=== PATIENT | female | born 1980 | race Caucasian/White ===

== ENCOUNTER → 2017-05-10 | Outpatient (CLI) | payer OTHER ==
[~2017-05-10] MED LIST: ALPR0.25 PO; CHOL2000 PO; GADOBUTROL 10 MMOL/10 ML PFS ONE; METF10002 PO; MULT-124 PO; MULT-672 PO; OMEG1TAB2 PO; SPIR50TA2 PO; VITA1CAP PO
== END | disposition home or self-care (01) ==
LOC: CFH 10:27
PROVIDERS: ATTEND Neurological Surgery
DX: M50.23 Other cervical disc displacement, cervicothoracic region (principal); G95.0 Syringomyelia and syringobulbia; M50.30 Other cervical disc degeneration, unspecified cervical region
CPT/HCPCS: 72156; A9585

== ENCOUNTER 2017-06-04 05:36 | Observation (INO) | payer OTHER ==
[2017-05-28 13:29] VITALS: BP 103/60
[~2017-06-04] VITALS: Ht 167.6 cm; Wt 127.6 kg
[~2017-06-04 05:36] MED LIST changes: +AMIT25TA PO; -GADOBUTROL 10 MMOL/10 ML PFS ONE; +RIZA10TA20 PO
[2017-06-04] MEDS ORDERED: LACTATED RINGERS 1,000 ML IV SCH (06:31)
[2017-06-04 06:36] LABS: HCG UR SG 1.028 (1.003-1.030)
[2017-06-04] MEDS ORDERED: THROMBIN 5,000 UNIT VIAL TP ONE (06:56)
[2017-06-04] MEDS ORDERED: EPINEPHRINE 1 MG/ML, 1ML ONE (06:56)
[2017-06-04] MEDS ORDERED: BACITRACIN 50,000 UNIT ONE (06:56)
[2017-06-04] MEDS ORDERED: BUPIVACAINE/PF 0.5% ONE (06:56)
[2017-06-04] MEDS ORDERED: LIDOCAINE-MPF 1%, 2ML INFIL ONE (07:00)
[2017-06-04] MEDS ORDERED: MIDAZOLAM 1 MG/ML, 2ML ONE (07:10)
[2017-06-04] MEDS ORDERED: FENTANYL PF 250 MCG/5ML ONE (07:11)
[2017-06-04] MEDS ORDERED: GABAPENTIN 300 MG CAPSULE ONE (07:24)
[2017-06-04] MEDS ORDERED: OxyconTIN ER 20 MG TAB.ER ONE (07:25)
[2017-06-04] MEDS ORDERED: ACETAMINOPHEN 500 MG TABLET ONE (07:25)
[2017-06-04] MEDS ORDERED: SCOPOLAMINE PATCH, 1.5MG PATCH.TD72 TD ONE ×2 (07:26→07:30)
[2017-06-04] MEDS ORDERED: GABAPENTIN 300 MG CAPSULE PO ONE (07:30)
[2017-06-04] MEDS ORDERED: OxyconTIN ER 20 MG TAB.ER PO ONE (07:30)
[2017-06-04] MEDS ORDERED: ACETAMINOPHEN 500 MG TABLET PO ONE (07:30)
[2017-06-04] MEDS ORDERED: CEFAZOLIN 1,000 MG ONE (07:37)
[2017-06-04] MEDS ORDERED: DEXAMETHASONE 4 MG/ML, 1ML ONE (07:37)
[2017-06-04] MEDS ORDERED: ONDANSETRON 2MG/ML, 2ML ONE (07:37)
[2017-06-04] MEDS ORDERED: PROPOFOL 10 MG/ML, 20ML ONE (07:37)
[2017-06-04] MEDS ORDERED: SUCCINYLCHOLINE 20 MG/ML, 10ML ONE (07:37)
[2017-06-04] MEDS ORDERED: SUFentanil 50 MCG/ML, 2ML ONE (08:24)
[2017-06-04] MEDS ORDERED: LABETALOL 5MG/ML, 20ML IV PRN (08:30)
[2017-06-04] MEDS ORDERED: LORazepam 2 MG/ML, 1ML IVPush PRN (08:30)
[2017-06-04] MEDS ORDERED: ALBUTEROL SULFATE 2.5 MG/3 ML NPPB PRN (08:30)
[2017-06-04] MEDS ORDERED: HYDROmorphone 1 MG/ML, 1ML IV PRN (08:30)
[2017-06-04] MEDS ORDERED: PROMETHAZINE 12.5 MG SUPP PR PRN (08:30)
[2017-06-04] MEDS ORDERED: hydrALAzine 20 MG/ML, 1ML IV PRN (08:30)
[2017-06-04] MEDS ORDERED: PROMETHAZINE 25 MG/ML, 1ML IV PRN (08:30)
[2017-06-04] MEDS ORDERED: OXYcodone 5 MG/5 ML ORAL.SOL UDC PO PRN (08:30)
[2017-06-04] MEDS ORDERED: MEPERIDINE/PF 25MG/0.5ML IVPush PRN (08:30)
[2017-06-04] MEDS ORDERED: LABETALOL 5MG/ML, 20ML ONE (09:57)
[2017-06-04] MEDS ORDERED: FENTANYL PF 100 MCG/2ML ONE (09:58)
[2017-06-04] MEDS ORDERED: DIPHENHYDRAMINE 50 MG/ML, 1ML IVPush PRN (10:00)
[2017-06-04] MEDS ORDERED: MEPERIDINE/PF 100 MG/ML IM PRN (10:00)
[2017-06-04] MEDS ORDERED: ONDANSETRON 2MG/ML, 2ML IVPush PRN ×2 (10:00→10:22)
[2017-06-04] MEDS ORDERED: PROMETHAZINE 25 MG/ML, 1ML IM PRN (10:00)
[2017-06-04] MEDS ORDERED: MAGNESIUM HYDROXIDE 8%, 30ML UDC PO PRN (10:00)
[2017-06-04] MEDS ORDERED: HYDROmorphone 1 MG/ML, 1ML IVPush PRN (10:00)
[2017-06-04] MEDS ORDERED: PHARMACY MAY ADJ FOR RENAL FX MC PRN (10:00)
[2017-06-04] MEDS ORDERED: BISACODYL 10 MG SUPP PR PRN (10:00)
[2017-06-04] MEDS: FENTANYL PF 100 MCG/2ML IV PRN ×2 (10:01→10:17)
[2017-06-04] MEDS ORDERED: DIPHENHYDRAMINE 50 MG/ML, 1ML ONE (10:14)
[2017-06-04] MEDS ORDERED: ONDANSETRON ODT 4 MG PO PRN (10:30)
[2017-06-04] MEDS: HYDROcodone/APAP 10/325 MG TABLET PO PRN ×3 (11:32→21:01)
[2017-06-04] MEDS: NS + 20MEQ KCL 1,000 ML IV SCH ×2 (12:06→22:00)
[2017-06-04 12:36] VITALS: BP 151/90
[2017-06-04] MEDS: TIZANIDINE 4MG TABLET PO PRN ×2 (13:22→21:01)
[2017-06-04] MEDS: CEFAZOLIN PMX 1GM/50ML 50 ML IVPB SCH (16:28)
[2017-06-04 19:42] VITALS: BP 121/73
[2017-06-04] MEDS: SODIUM CHLORIDE FLUSH 10ML SYR IVF SCH (21:00)
[2017-06-04] MEDS ORDERED: AMITRIPTYLINE 25 MG TABLET PO SCH (21:00)
[2017-06-05] MEDS: CEFAZOLIN PMX 1GM/50ML 50 ML IVPB SCH (00:52)
[2017-06-05] MEDS: HYDROcodone/APAP 10/325 MG TABLET PO PRN ×3 (00:52→09:41)
[2017-06-05 01:10] VITALS: BP 121/63
[2017-06-05 04:36] VITALS: BP 104/71
[2017-06-05] MEDS: TIZANIDINE 4MG TABLET PO PRN (05:03)
[2017-06-05 07:00] VITALS: BP 121/80
[2017-06-05] MEDS: NS + 20MEQ KCL 1,000 ML IV SCH (08:00)
[2017-06-05] MEDS: SODIUM CHLORIDE FLUSH 10ML SYR IVF SCH (08:42)
[2017-06-05] MEDS ORDERED: SENNA/DOCUSATE TABLET PO SCH (09:00)
[2017-06-05] MEDS ORDERED: OXYC-302 PO (09:58)
[2017-06-05] MEDS ORDERED: TIZA2CAP PO (10:23)
== END 2017-06-05 10:35 | disposition home or self-care (01) ==
LOC: INTOOBSV 05:36 → ORIP 05:36 → 4NOR 10:56 → DCLOUNGE 06-05 10:18
PROVIDERS: ADMIT Neurological Surgery; ATTEND Neurological Surgery
DX: M50.122 Cervical disc disorder at C5-C6 level with radiculopathy (principal); M47.812 Spondylosis without myelopathy or radiculopathy, cervical region
CPT/HCPCS: 22846; 36415; 63081; 63082; 69990; 72040; 81025; 86850; 86900; 95938; 95941; 96365; 96375; C1713; G0378; J0171; J0330; J0690; J1100; J1200; J2250; J2405; J2704; J3010; J3480; J3490; J7120

== ENCOUNTER → 2018-05-13 | Outpatient (CLI) | payer OTHER ==
[~2018-05-13] MED LIST changes: +OXYC-302 PO; -SPIR50TA2 PO; +SPIR50TA4 PO; +TIZA2CAP PO
== END | disposition home or self-care (01) ==
LOC: RAD 11:10
PROVIDERS: ATTEND Physician Assistant
DX: M25.511 Pain in right shoulder (principal); G89.29 Other chronic pain

== ENCOUNTER → 2018-09-01 | Outpatient (CLI) | payer OTHER | END | disposition home or self-care (01) | LOC: CFH 07:59 | PROVIDERS: ATTEND Physician Assistant | DX: M75.21 Bicipital tendinitis, right shoulder (principal) ==

== ENCOUNTER → 2019-01-16 | Outpatient (CLI) | payer OTHER ==
[2019-01-16 11:50] LABS: BASOPHILS # (AUTO) 0.03 x10^3/uL (0-0.1); BASOPHILS % (AUTO) 1 % (0-1); EOSINOPHILS # (AUTO) 0.12 x10^3/uL (0-0.4); EOSINOPHILS % (AUTO) 2 % (1-7); LYMPHOCYTES % (AUTO) 36 % (22-44); MD NO; MEAN CORPUSCULAR HEMOGLOBIN 30.2 pg (27.0-34.8); MEAN CORPUSCULAR HGB CONC 33.7 g/dL (32.4-35.8); MEAN CORPUSCULAR VOLUME 89.7 fL (80-100); MEAN PLATELET VOLUME 7.7 fL (7.4-10.4); MONOCYTES # (AUTO) 0.43 x10^3/uL (0.2-0.8); MONOCYTES % (AUTO) 7 % (2-9); NEUTROPHILS # (AUTO) 3.64 x10^3/uL (1.8-6.8); NEUTROPHILS % (AUTO) 55 % (42-75); PLATELET COUNT 220 x10^3/uL (130-400); RED BLOOD COUNT 5.09 x10^6/uL (3.82-5.3); RED CELL DISTRIBUTION WIDTH 13.4 % (9.6-15.2)
[2019-01-16 11:57] LABS: ALBUMIN 4.1 g/dL (3.4-5.0); ANION GAP 6 mmol/L (5-15); CALCIUM 8.8 mg/dL (8.5-10.1); CHLORIDE 104 mmol/L (98-107)
[2019-01-16 11:59] LABS: ALANINE AMINOTRANSFERASE 22 U/L (12-78); ALKALINE PHOSPHATASE 44 U/L (45-117); BILIRUBIN,TOTAL 0.7 mg/dL (0.2-1.0); CREATININE 0.74 mg/dL (0.55-1.02); TOTAL PROTEIN 7.4 g/dL (6.4-8.2)
[2019-01-20 15:01] LABS: ANA SCREEN NEGATIVE (Negative)
== END | disposition home or self-care (01) ==
LOC: LAB 11:24
PROVIDERS: ATTEND Family Medicine
DX: R10.9 Unspecified abdominal pain (principal); Z86.718 Personal history of other venous thrombosis and embolism
CPT/HCPCS: 36415; 80053; 82150; 83690; 85025; 86038

== ENCOUNTER → 2019-02-09 | Outpatient (CLI) | payer OTHER | END | disposition home or self-care (01) | LOC: RAD 15:27 | PROVIDERS: ATTEND Family Medicine | DX: R16.1 Splenomegaly, not elsewhere classified (principal) | CPT/HCPCS: 76700 ==

== ENCOUNTER 2020-02-20 11:23 | Inpatient (IN) | payer OTHER ==
[~2020-02-20] VITALS: Ht 167.6 cm; Wt 123.2 kg
--- NOTE | 2020-02-20 11:45 | NUR ---
task RN note: pt presents to ED, known covid +, symptom duration 11 days. c/o headache, cough, sore throat, sob, diarrhea, n/v. c/o sternal cp onset yesterday radiating to back. pt is a&o, resps even and unlabored. able to speak in full sentences without difficulty. all monitors in place. EKG taken on arrival by EDT. pt seen and examined by SADE Farmer, awaiting orders at this time. report given to primary RN Jie.
[2020-02-20] MEDS ORDERED: HYDROmorphone 2 MG/ML, 1ML ONE (12:16)
[2020-02-20] MEDS ORDERED: ONDANSETRON 2MG/ML, 2ML ONE (12:16)
[2020-02-20 12:25] LABS: BASOPHILS % (AUTO) 1 % (0-1); EOSINOPHILS % (AUTO) 4 % (1-7); LYMPHOCYTES % (AUTO) 39 % (22-44); MEAN CORPUSCULAR HEMOGLOBIN 30.2 pg (27.0-34.8); MEAN CORPUSCULAR HGB CONC 34.4 g/dL (32.4-35.8); MEAN PLATELET VOLUME 7.5 fL (7.4-10.4); MONOCYTES % (AUTO) 9 % (2-9); NEUTROPHILS % (AUTO) 48 % (42-75); PLATELET COUNT 153 x10^3/uL (130-400); RED CELL DISTRIBUTION WIDTH 12.8 % (9.6-15.2)
[2020-02-20] MEDS: HYDROmorphone 1 MG/ML, 1ML INJ IVPush PRN ×2 (12:31→14:39)
[2020-02-20 12:33] LABS: ALANINE AMINOTRANSFERASE 17 U/L (12-78); ALBUMIN 3.4 g/dL (3.4-5.0); ANION GAP 3 mmol/L (5-15); CALCIUM 8.6 mg/dL (8.5-10.1); CHLORIDE 108 mmol/L (98-107); CREATININE 0.82 mg/dL (0.55-1.02)
[2020-02-20 12:37] LABS: ALKALINE PHOSPHATASE 56 U/L (45-117); BILIRUBIN,TOTAL 0.6 mg/dL (0.2-1.0); TOTAL PROTEIN 7.5 g/dL (6.4-8.2); TROPONIN I < 0.015 ng/mL (0.000-0.045)
[2020-02-20] MEDS ORDERED: CEFTRIAXONE PMX 1GM/50ML 50 ML ONE ×2 (12:37→14:05)
[2020-02-20 12:46] LABS: MD SCAN
--- NOTE | 2020-02-20 12:59 | NUR ---
PIV INITIATED, PT MEDICATED PER MAR. GIVEN WARM BLANKET AND WATER PER REQUEST. DISCUSSED POC WITH PT, ALL QUESTIONS ANSWERED. VSS, NO OTHER NEEDS VOICED
[2020-02-20] MEDS ORDERED: SODIUM CHLORIDE FLUSH 10ML SYR IVF ONE (13:00)
[2020-02-20] MEDS ORDERED: ONDANSETRON 2MG/ML, 2ML IVPush ONE (13:00)
[2020-02-20] MEDS ORDERED: SODIUM CHLORIDE 0.9% 1,000ML IVBOLUS ONE (13:00)
[2020-02-20] MEDS ORDERED: CEFTRIAXONE PMX 1GM/50ML 50 ML IVPB ONE (13:00)
[2020-02-20] MEDS ORDERED: AZITHROMYCIN 500 MG in SODIUM CHLORIDE 0.9% 250 ML IV ONE (14:00)
[2020-02-20] MEDS ORDERED: HYDROmorphone 1 MG/ML, 1ML INJ ONE (14:31)
[2020-02-20] MEDS ORDERED: ACETAMINOPHEN 500 MG TABLET ONE (14:32)
--- NOTE | 2020-02-20 14:39 | NUR ---
Task rn: medicated for chills/body aches. Er provider asked about steroids. Er provider would like to defer to hospitalist
[2020-02-20] MEDS ORDERED: ACETAMINOPHEN 500 MG TABLET PO ONE ×2 (15:00→15:30)
[2020-02-20 15:16] LABS: C-REACTIVE PROTEIN, QUANT 2.1 mg/dL (0.02-0.49)
--- NOTE | 2020-02-20 15:23 | NUR ---
RECEIVED REPORT AND ASSUMED CARE. PT. REMAINS MONITORED. PT. REPORTS RELIEF FROM [facility] AND RATES HER PAIN 3/10. DR. PANTOJA AT THE BEDSIDE. PT. HAS EXSPIRATORY WHEEZING NOTED THROUGHOUT. DISCUSSED WITH MD ABOUT STEROIDS. ORDERS RECEIVED. PT. REMAINS MONITORED WITH HER IV SITE PATENT AND INFUSING. SIDERAILS ARE UP X 2 WITH THE CALL LIGHT IN PLACE.
[2020-02-20] MEDS ORDERED: DEXAMETHASONE 4 MG/ML, 1ML ONE (15:28)
--- NOTE | 2020-02-20 15:51 | NUR ---
REPORT WAS CALLED TO KARY HERNANDEZ. PT. IS READY FOR TRANSPORT.
[2020-02-20] MEDS: DEXAMETHASONE 4 MG/ML, 1ML IVPush SCH (15:57)
[2020-02-20] MEDS ORDERED: DOCUSATE 100 MG CAPSULE PO PRN (16:00)
[2020-02-20] MEDS ORDERED: ONDANSETRON 2MG/ML, 2ML IVPush PRN (16:00)
[2020-02-20] MEDS ORDERED: hydrALAzine 20 MG/ML, 1ML IVPush PRN (16:00)
[2020-02-20] MEDS ORDERED: LABETALOL 5MG/ML, 20ML IVPush PRN (16:00)
[2020-02-20] MEDS ORDERED: LOPERAMIDE 2 MG CAPSULE PO PRN (16:30)
[2020-02-20] MEDS ORDERED: ONDA4TAB7 PO (16:37)
[2020-02-20] MEDS: BENZONATATE 100 MG CAPSULE PO SCH ×2 (17:10→20:43)
[2020-02-20] MEDS: ASCORBIC ACID 500 MG TABLET PO SCH (17:10)
[2020-02-20] MEDS: ENOXAPARIN 60 MG/0.6 ML SQ SCH (17:10)
[2020-02-20 17:30] VITALS: BP 111/72
[2020-02-20 18:37] VITALS: BP 123/84
[2020-02-20 19:06] LABS: MICROSCOPIC INDICATED
[2020-02-20] MEDS: ALBUTEROL HFA 90 MCG/SPRAY INH SCH (20:42)
[2020-02-20] MEDS: FAMOTIDINE 20 MG TABLET PO SCH (20:43)
[2020-02-20] MEDS: SODIUM CHLORIDE FLUSH 10ML SYR IVF SCH (20:44)
[2020-02-20] MEDS: KETOROLAC 30 MG/1 ML IV PRN (20:44)
[2020-02-20] MEDS: MELATONIN 5 MG TABLET PO SCH (20:44)
[2020-02-20] MEDS ORDERED: TEMAZEPAM 15 MG CAPSULE PO SCH (21:00)
[2020-02-20] MEDS: HYDROmorphone 2 MG/ML, 1ML IVPush PRN (22:09)
[2020-02-21 01:13] VITALS: BP 105/73
[2020-02-21] MEDS: ALBUTEROL HFA 90 MCG/SPRAY INH SCH ×4 (02:33→21:45)
[2020-02-21 05:41] LABS: BASOPHILS % (AUTO) 1 % (0-1); EOSINOPHILS % (AUTO) 0 % (1-7); LYMPHOCYTES % (AUTO) 17 % (22-44); MEAN CORPUSCULAR HEMOGLOBIN 30.3 pg (27.0-34.8); MEAN CORPUSCULAR HGB CONC 34.8 g/dL (32.4-35.8); MEAN PLATELET VOLUME 7.7 fL (7.4-10.4); MONOCYTES % (AUTO) 9 % (2-9); NEUTROPHILS % (AUTO) 74 % (42-75); PLATELET COUNT 181 x10^3/uL (130-400); RED BLOOD COUNT 4.99 x10^6/uL (3.82-5.3); RED CELL DISTRIBUTION WIDTH 12.4 % (9.6-15.2)
[2020-02-21 05:43] LABS: MD NO
[2020-02-21 05:48] LABS: ANION GAP 2 mmol/L (5-15); CALCIUM 8.2 mg/dL (8.5-10.1); CHLORIDE 108 mmol/L (98-107); CREATININE 0.58 mg/dL (0.55-1.02)
[2020-02-21 07:31] VITALS: BP 118/77
[2020-02-21] MEDS: ASCORBIC ACID 500 MG TABLET PO SCH ×2 (08:02→16:01)
[2020-02-21] MEDS: ZINC SULFATE 220 MG CAPSULE PO SCH (08:02)
[2020-02-21] MEDS: BENZONATATE 100 MG CAPSULE PO SCH ×3 (08:02→21:41)
[2020-02-21] MEDS: FAMOTIDINE 20 MG TABLET PO SCH ×2 (08:02→21:41)
[2020-02-21] MEDS: CHOLECALCIFEROL 5,000u TAB PO SCH (08:03)
[2020-02-21] MEDS: THIAMINE 100MG TABLET PO SCH (08:03)
[2020-02-21] MEDS: SODIUM CHLORIDE FLUSH 10ML SYR IVF SCH ×2 (08:03→21:46)
[2020-02-21] MEDS: CEFTRIAXONE PMX 2GM/50ML 50 ML IVPB SCH (08:03)
[2020-02-21] MEDS: KETOROLAC 30 MG/1 ML IV PRN (08:10)
[2020-02-21] MEDS ORDERED: AZITHROMYCIN 500 MG TABLET PO ONE (09:00)
[2020-02-21] MEDS: HYDROmorphone 2 MG/ML, 1ML IVPush PRN (11:10)
[2020-02-21] MEDS ORDERED: FUROSEMIDE 20 MG/2 ML ONE (11:18)
[2020-02-21] MEDS ORDERED: POTASSIUM CHLORIDE 20 MEQ TAB.ER.PRT ONE (11:18)
[2020-02-21] MEDS ORDERED: POTASSIUM CHLORIDE 20 MEQ TAB.ER.PRT PO ONE (11:30)
[2020-02-21] MEDS ORDERED: FUROSEMIDE 20 MG/2 ML IV ONE (11:30)
[2020-02-21 13:25] VITALS: BP 119/78
[2020-02-21] MEDS: ACETAMINOPHEN 325 MG TABLET PO PRN (13:25)
[2020-02-21] MEDS: ENOXAPARIN 60 MG/0.6 ML SQ SCH (16:00)
[2020-02-21] MEDS: GUAIFENESIN/DM 200-20MG, 10ML UDC PO PRN (16:22)
[2020-02-21] MEDS ORDERED: DEXAMETHASONE 4 MG/ML, 1ML IVPush ONE (16:30)
[2020-02-21 20:36] VITALS: BP 109/75
[2020-02-21] MEDS ORDERED: TRAZODONE 50MG TABLET PO SCH (21:00)
[2020-02-21] MEDS: MELATONIN 5 MG TABLET PO SCH (21:41)
[2020-02-22 04:00] VITALS: BP 106/72
[2020-02-22] MEDS: GUAIFENESIN/DM 200-20MG, 10ML UDC PO PRN (04:21)
[2020-02-22] MEDS: ALBUTEROL HFA 90 MCG/SPRAY INH SCH ×3 (04:22→15:16)
[2020-02-22 08:55] VITALS: BP 116/78
[2020-02-22] MEDS: CEFTRIAXONE PMX 2GM/50ML 50 ML IVPB SCH (08:57)
[2020-02-22] MEDS: ZINC SULFATE 220 MG CAPSULE PO SCH (08:58)
[2020-02-22] MEDS: FAMOTIDINE 20 MG TABLET PO SCH (08:58)
[2020-02-22] MEDS: ASCORBIC ACID 500 MG TABLET PO SCH ×2 (08:58→16:23)
[2020-02-22] MEDS: THIAMINE 100MG TABLET PO SCH (08:58)
[2020-02-22] MEDS: DEXAMETHASONE 4 MG/ML, 1ML IVPush SCH (08:58)
[2020-02-22] MEDS: CHOLECALCIFEROL 5,000u TAB PO SCH (08:59)
[2020-02-22] MEDS: BENZONATATE 100 MG CAPSULE PO SCH ×2 (08:59→16:23)
[2020-02-22] MEDS: SODIUM CHLORIDE FLUSH 10ML SYR IVF SCH (09:12)
[2020-02-22] MEDS: HYDROmorphone 2 MG/ML, 1ML IVPush PRN (09:12)
[2020-02-22] MEDS: ACETAMINOPHEN 325 MG TABLET PO PRN (09:12)
[2020-02-22 13:30] VITALS: BP 114/64
[2020-02-22] MEDS: KETOROLAC 30 MG/1 ML IV PRN (13:51)
[2020-02-22] MEDS ORDERED: BENZ-17 PO (15:59)
[2020-02-22] MEDS ORDERED: THIA100T67 PO (15:59)
[2020-02-22] MEDS ORDERED: ALBU18HF INH (15:59)
[2020-02-22] MEDS ORDERED: CHOL500045 PO (15:59)
[2020-02-22] MEDS ORDERED: MELA5TAB14 PO (15:59)
[2020-02-22] MEDS ORDERED: DEXA6TAB6 PO (15:59)
[2020-02-22] MEDS ORDERED: CEFD300C37 PO (15:59)
[2020-02-22] MEDS ORDERED: DOXY100T PO (15:59)
[2020-02-22] MEDS ORDERED: ASCO500T9 PO (15:59)
[2020-02-22] MEDS ORDERED: ONDA4TAB7 PO (16:01)
[2020-02-22] MEDS: ENOXAPARIN 60 MG/0.6 ML SQ SCH (16:23)
== END 2020-02-22 17:50 | disposition home or self-care (01) | DRG 177 ==
LOC: ED 12:02 → EDIP 14:39 → 4WST 16:31
PROVIDERS: ADMIT Hospitalist; ATTEND Hospitalist
DX: U07.1 COVID-19 (principal); J12.89 Other viral pneumonia; D72.810 Lymphocytopenia; G89.29 Other chronic pain; M54.2 Cervicalgia; R00.0 Tachycardia, unspecified; R19.7 Diarrhea, unspecified; Z98.1 Arthrodesis status; Z91.040 Latex allergy status
CPT/HCPCS: 36415; 71045; 80048; 80053; 81001; 83605; 83615; 83690; 84484; 84703; 85025; 85379; 86140; 87040; 87086; 93005; 96365; 96366; 96367; 96375; G0378; J0456; J0696; J1100; J1170; J1650; J1885; J2405; J1940; J7030; J7050

== ENCOUNTER → 2020-03-07 | Outpatient (CLI) | payer OTHER ==
[~2020-03-07] MED LIST changes: +ALBU18HF INH; +ASCO500T9 PO; +BENZ-17 PO; +CEFD300C37 PO; +CHOL500045 PO; +DEXA6TAB6 PO; +DOXY100T PO; +GADOTERATE 10 MMOL/20 ML VIAL ONE; +MELA5TAB14 PO; +ONDA4TAB7 PO; +THIA100T67 PO
== END | disposition home or self-care (01) ==
LOC: RAD 10:14
PROVIDERS: ATTEND Registered Nurse
DX: M50.23 Other cervical disc displacement, cervicothoracic region (principal); M47.13 Other spondylosis with myelopathy, cervicothoracic region; M25.78 Osteophyte, vertebrae; M48.03 Spinal stenosis, cervicothoracic region
CPT/HCPCS: 72156; A9575